=== PATIENT | female | born 1965 | race Caucasian/White ===

== ENCOUNTER → 2020-07-28 09:39 | Outpatient (CLI) | payer OTHER, SELFPAY ==
--- NOTE | 2020-07-28 10:02 | ECG_ITS ---
APPROVED REPORT Exam: Resting ECG HR:62 bpm ECG Measurements Heart Rate 62 AXES [place] 148 P 74 QRSd 74 QRS 74 QT 382 T 53 QTc 387 <Conclusion> Normal sinus rhythm Nonspecific T wave abnormality Abnormal ECG Electronically signed by : Clyde Hightower, 07/30/2020 07:30:17
[2020-07-28 10:21] LABS: Basophils % 0.7 % (0.1-2.0); Eosinophils # 0.2 K/mm3 (0.0-0.4); Hematocrit 34.4 % (37.0-47.0); Hemoglobin 11.8 g/dL (12.2-16.2); Lymphocytes # 1.4 K/mm3 (0.7-4.5); Lymphocytes % 26.3 % (10-50); Mean Corpuscular HGB Conc 34.2 g/dL (31.8-35.4); Mean Corpuscular Hemoglobin 31.9 pg (27.0-31.2); Mean Corpuscular Volume 93.2 fl (81-99); Mean Platelet Volume 7.7 fl (7.4-10.4); Monocytes # 0.4 K/mm3 (0.1-1.0); Monocytes % 7.1 % (1.7-9.3); Neutrophils # 3.2 K/mm3 (1.8-7.8); Neutrophils % 61.9 % (37.0-80.0); Platelet Count 289 K/mm3 (142-424); Red Blood Count 3.69 M/mm3 (4.20-5.40); Red Cell Distribution Width 13.6 % (11.5-17.5); White Blood Count 5.1 K/mm3 (4.8-10.8)
[2020-07-28 10:47] LABS: Chloride 105 mmol/L (98-107)
[2020-07-28 10:48] LABS: Sodium 141 mmol/L (136-145)
[2020-07-28 10:51] LABS: Blood Urea Nitrogen 18 mg/dl (7-17); Carbon Dioxide 28 mmol/L (22.0-30.0); Estimated Glomerular Filt Rate 74 ml/min (>60); GFR (African American) 90 ML/MIN (>60); Glucose 103 mg/dl (74-100)
[2020-07-28 11:05] LABS: Coronavirus 19 IgG Antibody Negative (Negative); Coronavirus 19 IgM Antibody Negative (Negative)
== END ==
PROVIDERS: Visit Provider Otolaryngology
DX: Z01.818 Encounter for other preprocedural examination (principal); H61.22 Impacted cerumen, left ear; H65.05 Acute serous otitis media, recurrent, left ear
CPT/HCPCS: 36415; 80048; 85025; 86328; 93005

== ENCOUNTER 2020-07-29 07:05 | Day surgery (SDC) | payer OTHER, SELFPAY ==
[2020-07-27 10:36] VITALS: BMI 31.9
[2020-07-29] VITALS (9 sets, daily range): BP systolic 151–174; BP diastolic 47–99; PULSE 54–72; RESP 12–18; TEMP 36.2–36.6; O2SAT 92–98
--- NOTE | 2020-07-29 09:35 | HMH.ANESCL ---
[facility] Anesthesia Checklist - Structural Data Admitted From: Home Planned Operative Procedure/s: lmt Consent for Planned Operative Procedure(s) Verified: Yes - Additional verifications Anesthesia Reactions: No Hx Blood Transfusions: No Blood Transfusion Reaction: No - Airway Assessment C-Spine Mobility Assessed: Yes TMJ Mobility Assessed: Yes Dentition: Poor Dentition - Neurological Assessment Level of Consciousness: Awake, Alert, Appropriate - Anesthesia Plan Anesthesia Risk discussed: Yes Anesthesia Plan: Verified ASA Class: II Anesthesia Type: General [facility] History I have reviewed the patient's past medical history: Yes Medical History: Denies:: Cancer, Diabetes Mellitus Type 1, Diabetes Mellitus Type 2, Internal Pacemaker, MRSA, Seizures *Have you ever received a pneumonia vaccine?: No *Have you received a flu vaccine this season?: No Other Medical History: Denies: Blood Transfusion Reaction Anesthesia experience/problems:: none Other Surgeries: Yes: , Other. No: Pacemaker Amputation: No Fractures: No - *Social History Last grade of school completed: High school graduate Smoking Status: Never smoker Alcohol Intake: never Substance Use Type: denies use *Occupational Status:: unemployed Housing: house Household Members: spouse *Travel in the last 8 weeks: None Family Hx:: Hyperlipidemia, Hypertension
--- NOTE | 2020-07-29 10:13 | HMH.OPNOTE ---
Date of procedure: 07/29/20 Pre-op Diagnosis:: 1. Left Serous otitis 2. 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 Left myringotomy and tube Surgeon:: Anson Trent MD [employer]:: Feng Garcia Anesthesia: GETA Estimated blood loss (mL): 0 Operative findings:: same Operative note:: With the patient under general anesthetic the left ear was prepped and draped the left tympanic membrane was extremely scarred and atrophic. An incision was made in the posterior inferior quadrant serous fluid was aspirated and a Triune T-tube was placed. Gelfoam fragments were applied around the tube in order to support the tube. Ciprodex drops were applied and the patient was sent to recovery in good general condition. Condition: stable Disposition: PACU Complications:: none
--- NOTE | 2020-07-29 10:18 | P.PN_ITS ---
[facility] Anesthesia Record Part I Intake, IV Amount: 500 Estimated blood loss (mL): 0 Urine output (mL): 0 Blood Pressure: 151/47 SaO2: 92 Pulse Rate: 60 Respiratory Rate: 12 Temperature: 97.7 F Patient is:: Awake, Stable Stable to PACU at:: 10:15
--- NOTE | 2020-07-29 10:51 | PC.NURSE ---
1019-LMA removed at this time, O2 @ 2l/nc in place, o2 sats stable
--- NOTE | 2020-07-29 10:55 | PC.NURSE ---
1043-detailed report called to MARTÍNEZ Flores 1045-pt transported to post op via stretcher w/teri rails up and left in care of MARTÍNEZ Flores with bed locked in lowest position, vss, pt stable
--- NOTE | 2020-07-29 16:32 | HMH.ANESII ---
[facility] Anesthesia Record Part II Discharge Time: 10:45 Destination: [facility] PACU nurse assessment reviewed?: Yes Patient Condition:: Good Anesthesia Complications:: None Swallowing reflex intact?: Yes Cyanosis?: No Blood Pressure: 163/91 Pulse Rate: 71 Temperature: 97.2 F Mental Status: Alert & Oriented Pain level:: 0 Nausea and/or vomitting:: None Intake, IV Amount: 500
== END 2020-07-29 11:15 ==
LOC: OR 07:06
PROVIDERS: PCP Internal Medicine Adolescent Medicine; Visit Provider Otolaryngology
PROC: (CPT 69436; principal; 2020-07-29 09:15)
DX: H65.05 Acute serous otitis media, recurrent, left ear (principal); H61.22 Impacted cerumen, left ear; H91.92 Unspecified hearing loss, left ear; I10 Essential (primary) hypertension; F41.9 Anxiety disorder, unspecified; Z82.49 Family history of ischemic heart disease and other diseases of the circulatory system; Z83.438 Family history of other disorder of lipoprotein metabolism and other lipidemia; Z79.899 Other long term (current) drug therapy
CPT/HCPCS: 69436; 96374; J2405

== ENCOUNTER → 2021-11-16 20:03 | Outpatient (CLI) | payer OTHER, SELFPAY ==
[2021-11-16 20:37] LABS: Alanine Aminotransferase 20 U/L (12-78); Albumin Level 4.2 g/dl (3.5-5.0); Albumin/Globulin Ratio 1.6 (1.1-1.8); Alkaline Phosphatase 63 U/L (38-126); Anion Gap 9.9 mEq/L (5-15); Aspartate Amino Transferase 31 U/L (14-36); Bilirubin,Total 0.5 mg/dl (0.2-1.3); Blood Urea Nitrogen 21 mg/dl (7-17); Calcium 8.7 mg/dl (8.4-10.2); Carbon Dioxide 29 mmol/L (22.0-30.0); Chloride 101 mmol/L (98-107); Chol/HDL Ratio 3.2 (1-3.5); Cholesterol 195 mg/dl (140-200); Estimated Glomerular Filt Rate 74 ml/min (>60); GFR (African American) 89 ML/MIN (>60); Globulin 2.7 g/dL (1.3-3.2); Glucose 103 mg/dl (74-100); HDL Cholesterol 61 mg/dl (40-60); Potassium 3.9 mmoL/L (3.5-5.1); Sodium 136 mmol/L (136-145); Total Protein,Serum 6.9 g/dl (6.3-8.2); Triglycerides 69 mg/dl (30-150); VLDL Cholesterol 14 mg/dL (0-40)
[2021-11-16 20:45] LABS: Basophils # 0.1 K/mm3 (0-0.2); Basophils % 1.3 % (0.1-2.0); Eosinophils # 0.1 K/mm3 (0.0-0.4); Eosinophils % 2.8 % (0.1-12.0); Hematocrit 38.9 % (37.0-47.0); Hemoglobin 12.8 g/dL (12.2-16.2); Lymphocytes # 1.7 K/mm3 (0.7-4.5); Mean Corpuscular HGB Conc 32.8 g/dL (31.8-35.4); Mean Corpuscular Hemoglobin 31.1 pg (27.0-31.2); Mean Corpuscular Volume 94.8 fl (81-99); Mean Platelet Volume 8.7 fl (7.4-10.4); Monocytes # 0.3 K/mm3 (0.1-1.0); Monocytes % 6.6 % (1.7-9.3); Neutrophils # 2.6 K/mm3 (1.8-7.8); Neutrophils % 53.3 % (37.0-80.0); Platelet Count 334 K/mm3 (142-424); Red Blood Count 4.11 M/mm3 (4.20-5.40); Red Cell Distribution Width 13.3 % (11.5-17.5); White Blood Count 4.8 K/mm3 (4.8-10.8)
[2021-11-16 20:48] LABS: Direct LDL Cholesterol 109.48 mg/dL (100-129)
[2021-11-16 21:08] LABS: Thyroid Stimulating Hormone 1.75 uIU/mL (0.465-4.68)
[2021-11-16 21:27] LABS: Vitamin B12 289 pg/mL (239-931)
== END ==
PROVIDERS: Visit Provider Nurse Practitioner Family
DX: I10 Essential (primary) hypertension (principal); E78.2 Mixed hyperlipidemia; E55.9 Vitamin D deficiency, unspecified; G25.81 Restless legs syndrome
CPT/HCPCS: 80053; 80061; 82306; 82607; 84443; 85025

== ENCOUNTER 2022-02-22 09:00 | Outpatient (RCR) | payer OTHER, SELFPAY ==
--- NOTE | 2022-02-13 11:24 | HMH.PTOPEV ---
PT Outpatient Evaluation Rehab PT Outpatient Evaluation Start: 02/13/22 09:51 Freq: Status: Active Protocol: Document 02/13/22 09:51 ASIA (Rec: 02/13/22 11:24 PDESEROUX [id number]) Electronically Signed By Dwight Duke, CHANTEL 02/13/22 09:51 Outpatient Therapy Subjective History Subjective History Pt. is a 56 year old female who presents to [facility] Outpatient Physical Therapy Services for the initial evaluation this date(02/13/22) w/ c/o subacute and constant RLE knee P!, edema, stiffness, and weakness of traumatic onset 1 month ago. Pt. reports ambulating through her house when she heard/felt her knee pop 1 month ago. However, pt. vocalizes she was stepping backwards in her yard last week when she felt her knee crack. Pt. reports symptoms have improved slightly w/ resting and icing. Pt. reports symptoms worsen w/ bending her knee, standing, and walking on it. Pt. reports seeing an Orthopedic Surgeon( [facility]) on 02/28/22, and having a radiograph taken this week sometime. Pt. denies having injections for current symptom complaint. Pt. reports being very active prior to current injury. Pt. RTMD(Eliza) after she sees the Ortho. per pt. report. Current medications incldues a prescribed Topical Anti- inflammatory Cream, Lisinopril , Carvedilol, and Lexapro. PMH includes Hypertension and Hyperlipidemia. Pt. denies having a history of cancer( self), denies pacemaker, denies latex allergy, denies having a medicational allergy. Chief Complaint Pain,Stiff,Swelling,Catches/ Locks,Gives out/Unstable, Weakness,Decreased Coordination Symptom Type
== END 2022-03-27 17:15 | disposition home or self-care (01) ==
LOC: PT.CARL 09:00
PROVIDERS: PCP Internal Medicine Adolescent Medicine; Visit Provider Nurse Practitioner Family
DX: M25.561 Pain in right knee (principal); M25.461 Effusion, right knee
CPT/HCPCS: 97010; 97014; 97110; 97163; G0283

== ENCOUNTER → 2022-02-28 08:24 | Outpatient (CLI) | payer OTHER, SELFPAY ==
--- NOTE | 2022-02-28 08:28 | XR_ITS ---
FINAL REPORT CLINICAL HISTORY: Rt knee pain FINDINGS: RIGHT KNEE 4 views were obtained. There is no acute fracture or dislocation. There are mild degenerative changes at the medial and patellofemoral compartments. There is no soft tissue abnormality. IMPRESSION: Degenerative change with no acute bony abnormality. Reviewed, Interpreted and Dictated by Javon Harry III, MD Transcribed by Whitney Mae Authenticated by Javon Harry III, MD on 02/28/2022 11:25:[address] [facility]
== END ==
PROVIDERS: PCP Nurse Practitioner Family; Visit Provider Orthopaedic Surgery
DX: M25.561 Pain in right knee (principal)
CPT/HCPCS: 73564

== ENCOUNTER → 2022-03-08 08:41 | Outpatient (CLI) | payer OTHER, SELFPAY ==
--- NOTE | 2022-03-08 08:41 | MR_ITS ---
FINAL REPORT CLINICAL HISTORY: right medial knee pain, pt felt pop 1 month ago while opening a gate FINDINGS: Multi planar MR imaging was performed of the right knee. The anterior and posterior cruciate ligaments are intact. The quadriceps and patellar tendons are intact. There is increased signal in the posterior horn of the medial meniscus consistent with intrasubstance degeneration. The lateral meniscus is intact. The medial and lateral collateral ligaments appear intact. The medial and lateral retinacula appear intact. There is grade 1 chondromalacia along the undersurface of the patella. A small to moderate joint effusion is identified. There is a moderate popliteal cyst measuring 6.7 cm. There is minimal marrow edema of the medial femoral condyle and medial tibial plateau. No evidence of soft tissue inflammatory reaction. IMPRESSION: Intrasubstance degeneration posterior horn medial meniscus. Marrow edema of the medial femoral condyle and medial tibial plateau. Moderate popliteal cyst. Reviewed, Interpreted and Dictated by Segundo Gibbs MD Transcribed by Stefanie Friend Authenticated by Segundo Gibbs MD on 03/08/2022 10:48:51 AM [facility]
== END ==
PROVIDERS: PCP Nurse Practitioner Family; Visit Provider Orthopaedic Surgery
DX: M25.561 Pain in right knee (principal); M17.11 Unilateral primary osteoarthritis, right knee
CPT/HCPCS: 73721

== ENCOUNTER → 2022-08-03 07:37 | Outpatient (CLI) | payer OTHER, SELFPAY ==
--- NOTE | 2022-08-03 07:40 | MM_ITS ---
PROCEDURE INFORMATION: Exam: Bilateral Screening 3D Mammography Exam date and time: 08/03/2022 7:53 AM Age: 56 years old Clinical indication: Screening examination TECHNIQUE: Imaging protocol: Bilateral Screening tomosynthesis and 2D mammography including computer-aided detection (CAD) when performed. COMPARISON: MG DMSB DIG MAMM-SCREEN PERRY W/CAD 02/02/2017 4:21 PM FINDINGS: MAMMOGRAPHY: Breast composition: The breasts are heterogeneously dense, which may obscure small masses. Mass: None. Architectural distortion: None. Calcifications: No suspicious calcifications. Asymmetric density: None. Skin thickening: None. Axillary adenopathy: None. IMPRESSION: No mammographic evidence of malignancy. Annual screening is recommended unless otherwise clinically indicated. ASSESSMENT: BI-RADS Category 1: Negative
== END ==
PROVIDERS: PCP Nurse Practitioner Family; Visit Provider Nurse Practitioner Family
DX: Z12.31 Encounter for screening mammogram for malignant neoplasm of breast (principal)
CPT/HCPCS: 77063; 77067

== ENCOUNTER 2024-09-22 11:05 | Outpatient (CLI) | payer OTHER, SELFPAY ==
--- NOTE | 2024-09-22 11:10 | XR_ITS ---
FINAL REPORT CLINICAL HISTORY: knee pain COMPARISON: 02/28/2022 FINDINGS: Three views of the right knee reveal no evidence of fracture or dislocation. There are mild degenerative changes. There is slight worsening medial compartment narrowing. There is no evidence of joint effusion. No localized soft tissue abnormality is identified. IMPRESSION: Degenerative changes with worsening medial compartment narrowing. Reviewed, Interpreted and Dictated by Javon Harry III, MD Transcribed by Jaycee Campbell Authenticated and [facility]
== END 2024-09-22 23:59 | disposition home or self-care (01) ==
LOC: RAD 11:06
PROVIDERS: PCP Internal Medicine Adolescent Medicine; Visit Provider Orthopaedic Surgery
DX: M25.561 Pain in right knee (principal); G89.29 Other chronic pain
CPT/HCPCS: 73562

== ENCOUNTER 2025-02-18 09:25 | Outpatient (CLI) | payer OTHER, SELFPAY ==
--- NOTE | 2025-02-18 09:27 | XR_ITS ---
FINAL REPORT CLINICAL HISTORY: Knee Pain COMPARISON: 09/22/2024 FINDINGS: There is no acute fracture or dislocation. There is a mild tricompartmental degenerative change, most pronounced in the medial compartment. Findings are similar to previous. There is no soft tissue abnormality. IMPRESSION: Stable degenerative changes. Reviewed, Interpreted and Dictated by Isaias Lazaro MD Transcribed by Stefanie Friend Authenticated and [facility]
--- NOTE | 2025-02-18 09:27 | XR_ITS ---
FINAL REPORT CLINICAL HISTORY: Knee Pain FINDINGS: There is no acute fracture or dislocation. There is mild tricompartmental degenerative change, most pronounced in the medial compartment. There is no soft tissue abnormality. IMPRESSION: Mild degenerative changes. Reviewed, Interpreted and Dictated by Isaias Lazaro MD Transcribed by Stefanie Friend Authenticated and [facility]
== END 2025-02-18 23:59 | disposition home or self-care (01) ==
LOC: RAD 09:26
PROVIDERS: PCP Internal Medicine Adolescent Medicine; Visit Provider Physician Assistant
DX: M25.562 Pain in left knee (principal); M17.11 Unilateral primary osteoarthritis, right knee
CPT/HCPCS: 73562